=== PATIENT | male | born 1950 | race African-American/Black ===

== ENCOUNTER 2016-12-13 16:47 | Outpatient (CLI) ==
[2013-12-10 18:25] VITALS: BMI 28.2
== END 2016-12-13 16:48 | disposition left against medical advice (07) ==
LOC: AMBL 16:47
PROVIDERS: ATTEND Internal Medicine
DX: Z04.1 Encounter for examination and observation following transport accident (principal); S61.213A Laceration without foreign body of left middle finger without damage to nail, initial encounter; V53.5XXA Driver of pick-up truck or van injured in collision with car, pick-up truck or van in traffic accident, initial encounter

== ENCOUNTER 2017-04-10 17:15 | Emergency (ER) ==
[2017-04-10 17:38] VITALS: BP 159/101; TEMP 98.2; BMI 26.9
--- NOTE | 2017-04-10 17:53 | CT ---
EXAM: CT scan head without contrast. HISTORY: Cerebrovascular accident, stroke symptoms COMPARISON: None. TECHNIQUE: Axial scans acquired 5 mm slice thicknesses. FINDINGS: There is no subdural hematoma or intracranial hemorrhage seen. There is no shift of midli ne structures. Cabrera-white matter differentiation is maintained. Ventricles are normal in size. The paranasal sinuses and mastoid air cells appear clear. IMPRESSION: Negative CT scan head. No intracranial hemorrhage, CVA, mass or hydrocephalus is seen. If there is persisting clinical concern regarding cerebrovascular accident , a MRI scan could be obta ined
--- NOTE | 2017-04-10 18:13 | ED.PDOC ---
General ED Provider: Dr. STELLA WALTON Chief Complaint: Stroke Stated Complaint: CVA Time Seen by Physician: 17:40 (12 HR AGO NOTED SUDDEN LEFT LEG WEAKNESS WITH SLURRED SPEECH AND LEFT ARM WEAKNESS ) Mode of Arrival: Walk-In Information Source: Patient Exam Limitations: No limitations Primary Care Provider: MARILU JERNIGAN Nursing and Triage Documentation Reviewed and Agree: Yes Reviewed sepsis parameters & appropriate labs ordered?: Yes System Inflammatory Response Syndrome: Not Applicable Sepsis Protocol: For patient's 13 years and over: Temp is 96.8 and below OR 101 and greater Pulse >90 BPM Resp >20/minute Acutely Altered Mental Status Are patient's symptoms suggestive of a new infection, such as: -Pneumonia -Skin, Soft Tissue -Endocarditis -UTI -Bone, Joint Infection -Implantable Device -Acute Abdominal Infection -Wound Infection -Meningitis -Blood Stream Catheter Infection -Unknown System Inflammatory Response Syndrome: Not Applicable Neurological Complaint Exam - Weakness Complaint/Exam Last Known Well: 1 DAY AGO Onset: Sudden Duration: PRESENTX 12 HRS LEFT ARM/LEG WEAKNESS L FAICAL DROOP SLURRED SPEECH Symptoms Are: Still present Timing: Constant Episodes Lasting: Hours Initial Severity: Mild Current Severity: Mild Aggravating: Reports: None Alleviating: Reports: None Related History: Similar episode Cardiac Risk Factors: Reports: None CVA Risk Factors: Reports: None Related Surgical History: Reports: None JVD Present: No Carotid Bruit Present: No Rectal Heme Positive: No Glascow Coma Scale (see protocol): 15 Nystagmus Present: No Gag Reflex Present: Yes Meningeal Signs Positive: No Focal Weakness: Present: None Focal Sensory Loss: Present: None Gait: Abnormal (DRAGGS LEFT FOOT) [id number]: Normal Findings Babinski Sign: Negative Right, Negative Left Differential Diagnoses: Other (CVA) Quality Indicators for Cardiac Chest Pain: EKG in 10min. Quality Indicators for AMI: EKG in 10min. Quality Indicator For Non-Traumatic Chest Pain/Syncope: EKG Performed Review of Systems - Review Of Systems Constitutional: Reports: No symptoms Eyes: Reports: No symptoms Ears, Nose, Mouth, Throat: Reports: No symptoms Respiratory: Reports: No symptoms Cardiac: Reports: No symptoms GI: Reports: No symptoms : Reports: No symptoms Musculoskeletal: Reports: No symptoms Skin: Reports: No symptoms Neurological: Reports: Weakness (LEFT LEG AND LEFT ARM) Endocrine: Reports: No symptoms Hematologic/Lymphatic: Reports: No symptoms All Other Systems: Reviewed and Negative Past Medical History - Past Medical History Previously Healthy: Yes Endocrine: Reports: None Cardiovascular: Reports: None Respiratory: Reports: None Hematological: Reports: None Gastrointestinal: Reports: None Genitourinary: Reports: None Neuro/Psych: Reports: None Musculoskeletal: Reports: None Cancer: Reports: None - Surgical History General Surgical History: Reports: None - Family History Family History: Reports: None - Social History Smoking Status: Never smoker Hx Substance Use: No Alcohol Screening: None - Immunizations Tetanus Shot up to Date: Yes Physical Exam - Physical Exam Appearance: Well-appearing, No pain distress, Well-nourished Ill-appearing: Mild Pain Distress: Mild Eyes: GEORGE, EOMI, Conjunctiva clear ENT: Ears normal, Nose normal, Oropharynx normal Respiratory: Airway patent, Breath sounds clear, Breath sounds equal, Respirations nonlabored Cardiovascular: RRR, Pulses normal, No rub, No murmur GI/: Soft, Nontender, No masses, Bowel sounds normal, No Organomegaly Musculoskeletal: Normal strength, ROM intact, No edema, No calf tenderness Skin: Warm, Dry, Normal color Neurological: Sensation intact, Motor intact, Reflexes intact, Cranial nerves intact (LEGT LEG 3/5 MOTOR LEFT ARM 3/5), Alert, Oriented, Alert to verbal Psychiatric: Affect appropriate, Mood appropriate Interpretation - Radiology Interpretation Radiology Interpretation By: Radiologist Radiology Results: Negative Exam Interpreted: CT Scan - Auto Hauler Rate: Normal Rhythm: Sinus Ectopy: None (SINUS RYTHM SHORT ID INTERVAL TALL R WAVE V2 THESE FINDINGS MAY BE COMPATIBLE WITH WPW ) Physician Notification - Case Discussed Physician Notified: CHRISTA WILSON Time of Notification: 18:23 (TRANSFER NOW) Critical Care Note - Critical Care Note Total Time (mins): 0 Course - Course Hematology/Chemistry: 04/10/17 17:38 04/10/17 17:38 Orders, Labs, Meds: Lab Review 04/10/17 04/10/17 04/10/17 17:38 17:38 17:38 WBC 10.37 H RBC 4.60 L Hgb 13.4 L Hct 38.6 L MCV 83.9 MCH 29.1 MCHC 34.7 RDW Coeff of Rigoberto 13.6 Plt Count 203 Immature Gran % (Auto) 0.3 Neut % (Auto) 54.8 Lymph % (Auto) 36.3 Pope % (Auto) 7.2 Eos % (Auto) 1.0 Baso % (Auto) 0.4 Immature Gran # (Auto) 0.0 Neut # 5.7 Lymph # 3.8 H Pope # 0.8 Eos # 0.1 Baso # 0.0 PT 10.4 INR 1.02 APTT 26.5 Sodium 140 Potassium 4.3 Chloride 104 Carbon Dioxide 27 Anion Gap 13.3 BUN 15 Creatinine 1.03 Estimated GFR (MDRD) 88.00 BUN/Creatinine Ratio 14.56 Glucose 122 H Calcium 9.2 Total Bilirubin 0.4 AST 12 L ALT 12 Alkaline Phosphatase 75 Total Creatine Kinase 150 CK-MB (CK-2) 1.3 CK-MB (CK-2) % 0.87523 Troponin I 0.0110 Total Protein 7.5 Albumin 3.7 Globulin 3.8 Albumin/Globulin Ratio 0.97 Orders Category Date Time Status EKG-(ED ONLY) Stat CARDIO 04/10/17 17:17 Ordered CBC W/ AUTO DIFF Stat LAB 04/10/17 17:38 Completed COMPREHENSIVE METABOLIC PANEL Stat LAB 04/10/17 17:38 Received CREATINE KINASE Stat LAB 04/10/17 17:38 Received PARTIAL THROMBOPLASTIN TIME Stat LAB 04/10/17 17:38 Completed PT WITH INR Stat LAB 04/10/17 17:38 Completed TROPONIN I Stat LAB 04/10/17 17:38 Received CHEST, 1V AP ONLY Stat RADS 04/10/17 17:[address] HEAD W/O CONTRAST Stat RADS 04/10/17 17:17 Completed Vital Signs: Temp Pulse Resp BP Pulse Ox 04/10/17 17:15 98.2 F 69 16 159/101 H 97 Departure - Departure Time of Disposition: 19:00 Disposition: TSF SHORT-TRM HOSP Discharge Problem: CVA (cerebral vascular accident) Qualifiers: CVA mechanism: unspecified Qualified Code(s): I63.9 - Cerebral infarction, unspecified Instructions: Ischemic Stroke (GEN) Condition: Good Pt referred to PMD for follow-up: Yes IPMP verified?: No Additional Instructions: Please call your Family Physician as soon as possible to schedule a follow-up appointment. Allergies/Adverse Reactions: Allergies No Known Allergies Allergy (Verified 12/10/13 18:24) Home Medications: Ambulatory Orders Dorzolamide HCl/Timolol Maleat [Dorzolamide-Timolol Eye Drops] 2 drop OP DAILY 04/10/17 Disposition Discussed With: Patient
--- NOTE | 2017-04-11 07:15 | DI ---
EXAM: Chest one view, frontal view only. HISTORY: Cough. COMPARISON: 12/26/2007. FINDINGS: The heart size is normal. There is no pulmonary vascular congestion. The lungs are clear . No pleural effusion or pneumothorax is seen. No acute osseous abnormality is identified. Since t he prior study, there has been no significant interval change. IMPRESSION: No acute cardiopulmonary process.
== END 2017-04-10 19:40 | disposition short-term general hospital (02) ==
LOC: ED 17:15
DX: I63.9 Cerebral infarction, unspecified (principal)
CPT/HCPCS: 36415; 80053; 82550; 82553; 84484; 85025; 85610; 85730; 93005; 93010; 99285

== ENCOUNTER 2017-04-10 19:38 | Outpatient (CLI) ==
[2017-04-10 17:38] VITALS: BMI 26.9
== END 2017-04-10 19:39 | disposition short-term general hospital (02) ==
LOC: AMBL 19:38
PROVIDERS: ATTEND Internal Medicine Geriatric Medicine
DX: R53.1 Weakness (principal)